=== PATIENT | male | born 1950 | race Two or more races ===

== ENCOUNTER → 2016-08-24 | Outpatient (CLI) | payer OTHER ==
[~2016-08-24] VITALS: Ht 170.2 cm; Wt 104.8 kg
[~2016-08-24] MED LIST: AMMO225L14 TP; AMOX1TAB15 PO; FURO40 PO; INSLAN SQ; METO100XL PO; NORT25 PO
[2016-08-24 08:37] VITALS: BP 195/95
== END | disposition home or self-care (01) ==
LOC: EDBD → HBOWC 07:49
PROVIDERS: ATTEND Emergency Medicine
DX: T86.828 Other complications of skin graft (allograft) (autograft) (principal); E11.622 Type 2 diabetes mellitus with other skin ulcer; L97.322 Non-pressure chronic ulcer of left ankle with fat layer exposed; I87.8 Other specified disorders of veins; L84 Corns and callosities; B35.1 Tinea unguium; E11.65 Type 2 diabetes mellitus with hyperglycemia; E11.22 Type 2 diabetes mellitus with diabetic chronic kidney disease; I12.9 Hypertensive chronic kidney disease with stage 1 through stage 4 chronic kidney disease, or unspecified chronic kidney disease; N18.9 Chronic kidney disease, unspecified; K70.30 Alcoholic cirrhosis of liver without ascites; E66.9 Obesity, unspecified; E11.51 Type 2 diabetes mellitus with diabetic peripheral angiopathy without gangrene; E11.42 Type 2 diabetes mellitus with diabetic polyneuropathy; E11.319 Type 2 diabetes mellitus with unspecified diabetic retinopathy without macular edema; E11.36 Type 2 diabetes mellitus with diabetic cataract; Y83.2 Surgical operation with anastomosis, bypass or graft as the cause of abnormal reaction of the patient, or of later complication, without mention of misadventure at the time of the procedure
CPT/HCPCS: 11055; 11721; 97597; G0463

== ENCOUNTER → 2016-08-31 | Outpatient (CLI) | payer OTHER ==
[~2016-08-31] MED LIST changes: +ATOR20TA86 PO; +METF500T4 PO; +TAMS0.4C32 PO
[2016-08-31 15:07] VITALS: BP 196/76
[2016-08-31 15:08] VITALS: BP 179/83
== END | disposition home or self-care (01) ==
LOC: EDBD → HBOWC 12:44
PROVIDERS: ATTEND Emergency Medicine
DX: E11.622 Type 2 diabetes mellitus with other skin ulcer (principal); L97.322 Non-pressure chronic ulcer of left ankle with fat layer exposed; E11.621 Type 2 diabetes mellitus with foot ulcer; L97.521 Non-pressure chronic ulcer of other part of left foot limited to breakdown of skin; E11.22 Type 2 diabetes mellitus with diabetic chronic kidney disease; I12.9 Hypertensive chronic kidney disease with stage 1 through stage 4 chronic kidney disease, or unspecified chronic kidney disease; N18.9 Chronic kidney disease, unspecified; L84 Corns and callosities; E66.9 Obesity, unspecified; B35.1 Tinea unguium; E11.65 Type 2 diabetes mellitus with hyperglycemia; E11.42 Type 2 diabetes mellitus with diabetic polyneuropathy; E11.51 Type 2 diabetes mellitus with diabetic peripheral angiopathy without gangrene
CPT/HCPCS: 97597; 97598

== ENCOUNTER → 2016-09-01 | Outpatient (CLI) | payer OTHER | END | disposition home or self-care (01) | LOC: EDBD → RADPV 13:03 | PROVIDERS: ATTEND Emergency Medicine | DX: E11.622 Type 2 diabetes mellitus with other skin ulcer (principal); L97.919 Non-pressure chronic ulcer of unspecified part of right lower leg with unspecified severity | CPT/HCPCS: 93880; 93925 ==

== ENCOUNTER → 2016-09-23 | Outpatient (CLI) | payer OTHER ==
[2016-09-23 14:26] VITALS: BP 199/94
== END | disposition home or self-care (01) ==
LOC: EDBD → HBOWC 11:48 → EDBD 11:48
PROVIDERS: ATTEND Emergency Medicine
DX: T86.828 Other complications of skin graft (allograft) (autograft) (principal); E11.621 Type 2 diabetes mellitus with foot ulcer; L97.521 Non-pressure chronic ulcer of other part of left foot limited to breakdown of skin; L97.321 Non-pressure chronic ulcer of left ankle limited to breakdown of skin; I87.2 Venous insufficiency (chronic) (peripheral); M86.8X6 Other osteomyelitis, lower leg; L97.821 Non-pressure chronic ulcer of other part of left lower leg limited to breakdown of skin; E11.22 Type 2 diabetes mellitus with diabetic chronic kidney disease; I12.9 Hypertensive chronic kidney disease with stage 1 through stage 4 chronic kidney disease, or unspecified chronic kidney disease; N18.9 Chronic kidney disease, unspecified; L84 Corns and callosities; E66.9 Obesity, unspecified; B35.1 Tinea unguium; E11.42 Type 2 diabetes mellitus with diabetic polyneuropathy; E11.65 Type 2 diabetes mellitus with hyperglycemia; E11.51 Type 2 diabetes mellitus with diabetic peripheral angiopathy without gangrene; K70.30 Alcoholic cirrhosis of liver without ascites; E11.36 Type 2 diabetes mellitus with diabetic cataract; E11.319 Type 2 diabetes mellitus with unspecified diabetic retinopathy without macular edema; Y83.5 Amputation of limb(s) as the cause of abnormal reaction of the patient, or of later complication, without mention of misadventure at the time of the procedure
CPT/HCPCS: 97597

== ENCOUNTER → 2016-09-30 | Outpatient (CLI) | payer OTHER ==
[~2016-09-30] MED LIST changes: -AMOX1TAB15 PO; +LIDOCAINE HCL 2% 5 ML JELLY TP ONE
[2016-09-30 14:00] VITALS: BP 164/95
== END | disposition home or self-care (01) ==
LOC: EDBD → RADMN 10:12
PROVIDERS: ATTEND Emergency Medicine Undersea and Hyperbaric Medicine
DX: E11.621 Type 2 diabetes mellitus with foot ulcer (principal); L97.529 Non-pressure chronic ulcer of other part of left foot with unspecified severity; E11.65 Type 2 diabetes mellitus with hyperglycemia; E11.22 Type 2 diabetes mellitus with diabetic chronic kidney disease; N18.9 Chronic kidney disease, unspecified; K74.60 Unspecified cirrhosis of liver
CPT/HCPCS: 73721

== ENCOUNTER 2016-10-06 07:23 | Day surgery (SDC) | payer OTHER ==
[~2016-10-06] VITALS: Ht 167.6 cm; Wt 107.3 kg
[~2016-10-06 07:23] MED LIST changes: -ATOR20TA86 PO; +ESMOLOL HCL 10 MG/ML 10 ML VIAL IVP ONE; +FentaNYL CITRATE-PF 100 MCG/2 ML VIAL IVP ONE; -LIDOCAINE HCL 2% 5 ML JELLY TP ONE; -METF500T4 PO; +METOPROLOL TARTRATE 5 MG/5 ML VIAL IVP ONE; +MIDAZOLAM HCL 2 MG/2 ML VIAL IVP ONE; -TAMS0.4C32 PO
[2016-10-06] MEDS ORDERED: PHENYLEPHRINE HCL 2.5% 2 ML OPHTHALMIC SOLUTION ONE (07:39)
[2016-10-06] MEDS ORDERED: DICLOFENAC SODIUM 0.1% 2.5 ML OPHTHALMIC SOLUTION ONE (07:39)
[2016-10-06] MEDS ORDERED: GATIFLOXACIN 0.5% 2.5 ML OPHTHALMIC SOLUTION ONE (07:39)
[2016-10-06] MEDS ORDERED: CYCLOPENTOLATE HCL 2% 2 ML OPHTHALMIC SOLUTION ONE (07:39)
[2016-10-06] MEDS ORDERED: TETRACAINE HCL 0.5% 2 ML OPHTHALMIC SOLUTION ONE (07:39)
[2016-10-06] MEDS ORDERED: RINGERS SOLUTION,LACTATED 500 ML IV ONE ×2 (07:40→08:00)
[2016-10-06] MEDS ORDERED: ACETAMINOPHEN 325 MG TABLET PO PRN (07:45)
[2016-10-06] MEDS ORDERED: TETRACAINE HCL 0.5% 2 ML OPHTHALMIC SOLUTION OS ONE ×2 (07:45→18:10)
[2016-10-06 08:22] LABS: GLUCOSE COMMENT 1 Doctor Notified; GLUCOSE,POINT OF CARE 106 MG/DL (70-110)
[2016-10-06] MEDS ORDERED: LABETALOL HCL 5 MG/ML 20 ML VIAL IVP ONE (08:30)
[2016-10-06] MEDS: DICLOFENAC SODIUM 0.1% 2.5 ML OPHTHALMIC SOLUTION OS SCH ×3 (08:42→09:08)
[2016-10-06] MEDS: PHENYLEPHRINE HCL 2.5% 2 ML OPHTHALMIC SOLUTION OS SCH ×3 (08:42→08:59)
[2016-10-06] MEDS: GATIFLOXACIN 0.5% 2.5 ML OPHTHALMIC SOLUTION OS SCH ×3 (08:42→09:08)
[2016-10-06] MEDS: CYCLOPENTOLATE HCL 2% 2 ML OPHTHALMIC SOLUTION OS SCH ×3 (08:42→08:59)
[2016-10-06 08:46] VITALS: BP 210/104
[2016-10-06] MEDS ORDERED: AcetaZOLAMIDE 250 MG TABLET PO ONE (09:45)
[2016-10-06] MEDS ORDERED: AcetaZOLAMIDE 250 MG TABLET ONE (10:13)
[2016-10-06] MEDS ORDERED: MOXIFLOXACIN HCL 0.5% 3 ML OPHTHALMIC SOLUTION OS ONE (18:10)
[2016-10-06] MEDS ORDERED: TETRACAINE HCL VISCOUS 0.5% 0.6 ML OPHTHALMIC SOLUTION OS ONE (18:10)
[2016-10-06] MEDS ORDERED: EPINEPHrine 1:1,000 [1 MG/ML] AMP IM ONE (18:10)
[2016-10-06] MEDS ORDERED: POVIDONE-IODINE 10% 15 ML SOLUTION UD TP ONE (18:10)
[2016-10-06] MEDS ORDERED: HYALURONATE SODIUM 12 MG/ML 0.8 ML SYRINGE IO ONE (18:10)
[2016-10-06] MEDS ORDERED: HYALURONATE SOD/CHONDROITIN SOD 0.5 ML VIAL IO ONE (18:10)
[2016-10-06] MEDS ORDERED: BRIMONIDINE TARTRATE 0.15% 5 ML OPHTHALMIC SOLUTION OS ONE (18:10)
[2016-10-06] MEDS ORDERED: LIDOCAINE HCL/PF 1% 2 ML VIAL IM ONE (18:10)
[2016-10-14] MEDS ORDERED: METF500T4 PO (11:30)
[2016-12-03] MEDS ORDERED: TAMS0.4C32 PO (14:07)
[2016-12-03] MEDS ORDERED: ATOR20TA86 PO (14:07)
== END 2016-10-06 11:20 | disposition home or self-care (01) ==
LOC: EDBD → SURGERY 07:23
PROVIDERS: ATTEND Ophthalmology
DX: E11.36 Type 2 diabetes mellitus with diabetic cataract (principal); E11.40 Type 2 diabetes mellitus with diabetic neuropathy, unspecified; K74.60 Unspecified cirrhosis of liver; I10 Essential (primary) hypertension; D64.9 Anemia, unspecified; E66.9 Obesity, unspecified; Z98.890 Other specified postprocedural states
CPT/HCPCS: 66984; 82962; 93005; C1780; J0171; J2250; J3010; J3490 ×5; J7120

== ENCOUNTER → 2016-10-14 | Outpatient (CLI) | payer OTHER ==
[~2016-10-14] MED LIST changes: +ATOR20TA86 PO; -ESMOLOL HCL 10 MG/ML 10 ML VIAL IVP ONE; -FentaNYL CITRATE-PF 100 MCG/2 ML VIAL IVP ONE; +METF500T4 PO; -METOPROLOL TARTRATE 5 MG/5 ML VIAL IVP ONE; -MIDAZOLAM HCL 2 MG/2 ML VIAL IVP ONE; +TAMS0.4C32 PO
[2016-10-14 10:50] VITALS: BP 188/90
[2016-10-14 11:12] LABS: GLUCOSE,POINT OF CARE 121 MG/DL (70-110)
== END | disposition home or self-care (01) ==
LOC: HBOWC 09:41
PROVIDERS: ATTEND Emergency Medicine
DX: T86.828 Other complications of skin graft (allograft) (autograft) (principal); E11.621 Type 2 diabetes mellitus with foot ulcer; L97.521 Non-pressure chronic ulcer of other part of left foot limited to breakdown of skin; E11.622 Type 2 diabetes mellitus with other skin ulcer; L97.321 Non-pressure chronic ulcer of left ankle limited to breakdown of skin; E66.9 Obesity, unspecified; E11.22 Type 2 diabetes mellitus with diabetic chronic kidney disease; I12.9 Hypertensive chronic kidney disease with stage 1 through stage 4 chronic kidney disease, or unspecified chronic kidney disease; N18.9 Chronic kidney disease, unspecified; E11.40 Type 2 diabetes mellitus with diabetic neuropathy, unspecified; L84 Corns and callosities; E11.69 Type 2 diabetes mellitus with other specified complication; M86.8X6 Other osteomyelitis, lower leg; E11.42 Type 2 diabetes mellitus with diabetic polyneuropathy; E11.51 Type 2 diabetes mellitus with diabetic peripheral angiopathy without gangrene; E11.319 Type 2 diabetes mellitus with unspecified diabetic retinopathy without macular edema; E11.36 Type 2 diabetes mellitus with diabetic cataract; Y83.2 Surgical operation with anastomosis, bypass or graft as the cause of abnormal reaction of the patient, or of later complication, without mention of misadventure at the time of the procedure
CPT/HCPCS: 82962; 97597

== ENCOUNTER → 2016-11-05 | Outpatient (CLI) | payer OTHER ==
[~2016-11-05] MED LIST changes: -ATOR20TA86 PO; +LIDOCAINE HCL 2% 5 ML JELLY TP ONE; -TAMS0.4C32 PO
[2016-11-05 14:19] VITALS: BP 187/72
[2016-11-05 15:03] VITALS: BP 161/78
== END | disposition home or self-care (01) ==
LOC: HBOWC 11:47
PROVIDERS: ATTEND Emergency Medicine
DX: T86.828 Other complications of skin graft (allograft) (autograft) (principal); E11.622 Type 2 diabetes mellitus with other skin ulcer; L97.322 Non-pressure chronic ulcer of left ankle with fat layer exposed; E11.621 Type 2 diabetes mellitus with foot ulcer; L97.521 Non-pressure chronic ulcer of other part of left foot limited to breakdown of skin; I87.2 Venous insufficiency (chronic) (peripheral); E11.22 Type 2 diabetes mellitus with diabetic chronic kidney disease; I12.9 Hypertensive chronic kidney disease with stage 1 through stage 4 chronic kidney disease, or unspecified chronic kidney disease; N18.4 Chronic kidney disease, stage 4 (severe); L84 Corns and callosities; E66.9 Obesity, unspecified; E11.69 Type 2 diabetes mellitus with other specified complication; M86.8X6 Other osteomyelitis, lower leg; E11.36 Type 2 diabetes mellitus with diabetic cataract; E11.40 Type 2 diabetes mellitus with diabetic neuropathy, unspecified; E11.51 Type 2 diabetes mellitus with diabetic peripheral angiopathy without gangrene; E11.42 Type 2 diabetes mellitus with diabetic polyneuropathy; K74.60 Unspecified cirrhosis of liver; E11.65 Type 2 diabetes mellitus with hyperglycemia; B35.1 Tinea unguium; Y83.2 Surgical operation with anastomosis, bypass or graft as the cause of abnormal reaction of the patient, or of later complication, without mention of misadventure at the time of the procedure
CPT/HCPCS: 11720; 97597; 97598

== ENCOUNTER 2016-11-19 21:08 | Emergency (ER) | payer OTHER ==
[~2016-11-19] VITALS: Ht 172.7 cm; Wt 90.9 kg
[~2016-11-19 21:08] MED LIST changes: -ATOR20TA86 PO; -LIDOCAINE HCL 2% 5 ML JELLY TP ONE; -TAMS0.4C32 PO
[2016-11-19 21:36] LABS: GLUCOSE,POINT OF CARE 139 MG/DL (70-110)
[2016-11-19 21:49] LABS: BASOPHILS % (AUTO) 0.4 % (0.0-2.0); EOSINOPHILS % (AUTO) 1.8 % (1.0-6.0); HEMATOCRIT 44.2 % (41-53); HEMOGLOBIN 14.1 g/dL (13.5-17.5); LYMPHOCYTES # (AUTO) 2.7 K/uL (1.0-4.8); LYMPHOCYTES % (AUTO) 26.1 % (22.0-44.0); MEAN CORPUSCULAR HEMOGLOBIN 26.9 pg (26.0-34.0); MEAN CORPUSCULAR VOLUME 84 fL (80-100); MONOCYTES % (AUTO) 9.5 % (2.0-9.0); NEUTROPHILS # (AUTO) 6.5 K/uL (1.8-7.7); NEUTROPHILS % (AUTO) 62.2 % (40.0-70.0); PLATELET COUNT (AUTO) 240 K/uL (150-450); RED BLOOD CELL COUNT(AUTO) 5.25 MIL/uL (4.50-5.90); RED CELL DISTRIBUTION WIDTH 14.9 % (11.5-14.5); WHITE BLOOD COUNT (AUTO) 10.4 K/uL (4.5-11.0)
[2016-11-19 22:01] LABS: ANION GAP 7 mmol/L (8-16); CALCIUM, TOTAL 8.2 mg/dL (8.8-10.5); CARBON DIOXIDE 26 mmol/L (22-29); CHLORIDE 107 mmol/L (98-107); CREATININE 2.68 mg/dL (0.60-1.30); GLOMERULAR FILTR. RATE CALC 24 mL/min (>60); POTASSIUM 4.9 mmol/L (3.5-5.1); SODIUM SERUM 140 mmol/L (136-145); UREA NITROGEN, BLOOD 22 mg/dL (7-18)
[2016-11-19 22:02] LABS: INR 0.9 (0.9-1.1); PROTHROMBIN TIME 9.7 SEC (9.4-11.6)
[2016-11-19 22:26] LABS: ALANINE AMINOTRANSFERASE 18 U/L (12-78); ALBUMIN 2.1 g/dL (3.4-5.0); ASPARTATE AMINOTRANSFERASE 19 U/L (15-37); BILIRUBIN,TOTAL 0.3 mg/dL (0.1-1.0); CREATINE KINASE MB 1.7 ng/mL (0-5); CREATINE KINASE, TOTAL 146 U/L (39-308); TOTAL PROTEIN, SERUM 6.2 g/dL (6.4-8.2)
[2016-11-19] MEDS ORDERED: HydrALAZINE HCL 20 MG/ML VIAL IVP ONE (23:15)
[2016-11-19 23:22] LABS: APPEARANCE,URINE CLEAR (CLEAR); GLUCOSE, URINE (UA) 250 mg/dL (NEGATIVE); KETONES,URINE NEGATIVE (NEGATIVE); LEUKOCYTE ESTERASE ,URINE NEGATIVE (NEGATIVE); OCCULT BLOOD,URINE SMALL (NEGATIVE); PROTEIN,URINE SEE CONFIRM (NEGATIVE)
[2016-11-19 23:25] LABS: ADD UA MICROSCOPIC YES
[2016-11-19 23:44] LABS: SULFOSALICYLIC ACID,URINE 3+ (Negative)
[2016-11-19 23:45] LABS: SQUAMOUS EPITHELIAL CELL,UR Rare /LPF (None Seen); WBC,URINE 0-2 /HPF (0-5)
[2016-11-20] MEDS ORDERED: HydrALAZINE HCL 20 MG/ML VIAL IVP ONE (00:30)
[2016-11-20 01:35] VITALS: BP 129/77
[2016-12-03] MEDS ORDERED: ATOR20TA86 PO (14:07)
[2016-12-03] MEDS ORDERED: TAMS0.4C32 PO (14:07)
== END 2016-11-20 01:38 | disposition home or self-care (01) ==
LOC: EMS 21:09
DX: I10 Essential (primary) hypertension (principal); E11.9 Type 2 diabetes mellitus without complications
CPT/HCPCS: 36415; 71010; 80053; 81001; 81002; 82550; 82553; 82962; 84484; 85025; 85610; 85730; 93005; 96374; 96376; 99285; J0360 ×2

== ENCOUNTER → 2016-11-19 | Outpatient (CLI) | payer OTHER ==
[~2016-11-19] MED LIST changes: +ATOR20TA86 PO; +TAMS0.4C32 PO
[2016-11-19 14:26] VITALS: BP_SYST 188; BP_SYST 194; BP_DIAS 102; BP_DIAS 105
== END | disposition home or self-care (01) ==
LOC: HBOWC 12:06
PROVIDERS: ATTEND Emergency Medicine
DX: T86.828 Other complications of skin graft (allograft) (autograft) (principal); E11.622 Type 2 diabetes mellitus with other skin ulcer; L84 Corns and callosities; L97.322 Non-pressure chronic ulcer of left ankle with fat layer exposed; K74.60 Unspecified cirrhosis of liver; M20.42 Other hammer toe(s) (acquired), left foot; R60.0 Localized edema; B36.9 Superficial mycosis, unspecified; M72.6 Necrotizing fasciitis; E11.69 Type 2 diabetes mellitus with other specified complication; M86.8X8 Other osteomyelitis, other site; E11.42 Type 2 diabetes mellitus with diabetic polyneuropathy; E11.65 Type 2 diabetes mellitus with hyperglycemia; E11.22 Type 2 diabetes mellitus with diabetic chronic kidney disease; I12.9 Hypertensive chronic kidney disease with stage 1 through stage 4 chronic kidney disease, or unspecified chronic kidney disease; E66.9 Obesity, unspecified; N18.4 Chronic kidney disease, stage 4 (severe); I87.2 Venous insufficiency (chronic) (peripheral); E11.36 Type 2 diabetes mellitus with diabetic cataract; E11.319 Type 2 diabetes mellitus with unspecified diabetic retinopathy without macular edema; Z79.4 Long term (current) use of insulin; Y83.2 Surgical operation with anastomosis, bypass or graft as the cause of abnormal reaction of the patient, or of later complication, without mention of misadventure at the time of the procedure
CPT/HCPCS: 97597

== ENCOUNTER → 2016-12-03 | Outpatient (CLI) | payer OTHER ==
[~2016-12-03] MED LIST changes: +ATOR20TA86 PO; +TAMS0.4C32 PO
[2016-12-03 14:09] VITALS: BP 178/78
== END | disposition home or self-care (01) ==
LOC: HBOWC 13:09
PROVIDERS: ATTEND Emergency Medicine
DX: E11.621 Type 2 diabetes mellitus with foot ulcer (principal); L97.521 Non-pressure chronic ulcer of other part of left foot limited to breakdown of skin; E11.622 Type 2 diabetes mellitus with other skin ulcer; L97.322 Non-pressure chronic ulcer of left ankle with fat layer exposed; E11.22 Type 2 diabetes mellitus with diabetic chronic kidney disease; I12.9 Hypertensive chronic kidney disease with stage 1 through stage 4 chronic kidney disease, or unspecified chronic kidney disease; N18.4 Chronic kidney disease, stage 4 (severe); E11.42 Type 2 diabetes mellitus with diabetic polyneuropathy; E11.36 Type 2 diabetes mellitus with diabetic cataract; E66.9 Obesity, unspecified; E11.319 Type 2 diabetes mellitus with unspecified diabetic retinopathy without macular edema; E11.51 Type 2 diabetes mellitus with diabetic peripheral angiopathy without gangrene; E11.69 Type 2 diabetes mellitus with other specified complication; M86.8X8 Other osteomyelitis, other site; M86.8X6 Other osteomyelitis, lower leg; E11.649 Type 2 diabetes mellitus with hypoglycemia without coma; K74.60 Unspecified cirrhosis of liver; Z79.4 Long term (current) use of insulin
CPT/HCPCS: 97597

== ENCOUNTER → 2016-12-17 | Outpatient (CLI) | payer OTHER ==
[2016-12-17 09:45] VITALS: BP 153/78
== END | disposition home or self-care (01) ==
LOC: HBOWC 09:32
PROVIDERS: ATTEND Emergency Medicine Undersea and Hyperbaric Medicine
DX: E11.622 Type 2 diabetes mellitus with other skin ulcer (principal); L97.322 Non-pressure chronic ulcer of left ankle with fat layer exposed; E11.621 Type 2 diabetes mellitus with foot ulcer; L97.521 Non-pressure chronic ulcer of other part of left foot limited to breakdown of skin; I87.2 Venous insufficiency (chronic) (peripheral); E11.22 Type 2 diabetes mellitus with diabetic chronic kidney disease; I12.9 Hypertensive chronic kidney disease with stage 1 through stage 4 chronic kidney disease, or unspecified chronic kidney disease; N18.4 Chronic kidney disease, stage 4 (severe); E66.9 Obesity, unspecified; E11.69 Type 2 diabetes mellitus with other specified complication; M86.8X8 Other osteomyelitis, other site; E11.36 Type 2 diabetes mellitus with diabetic cataract; E11.42 Type 2 diabetes mellitus with diabetic polyneuropathy; E11.649 Type 2 diabetes mellitus with hypoglycemia without coma; E11.51 Type 2 diabetes mellitus with diabetic peripheral angiopathy without gangrene; L84 Corns and callosities; M72.6 Necrotizing fasciitis; B35.1 Tinea unguium; Z79.4 Long term (current) use of insulin
CPT/HCPCS: 97597

== ENCOUNTER → 2017-01-11 | Outpatient (CLI) | payer OTHER ==
[~2017-01-11] MED LIST changes: +LIDOCAINE HCL 2% 5 ML JELLY TP ONE
[2017-01-11 13:58] VITALS: BP 165/85
== END | disposition home or self-care (01) ==
LOC: HBOWC 12:55
PROVIDERS: ATTEND Emergency Medicine Undersea and Hyperbaric Medicine
DX: T86.828 Other complications of skin graft (allograft) (autograft) (principal); E11.622 Type 2 diabetes mellitus with other skin ulcer; L97.321 Non-pressure chronic ulcer of left ankle limited to breakdown of skin; E11.621 Type 2 diabetes mellitus with foot ulcer; L97.521 Non-pressure chronic ulcer of other part of left foot limited to breakdown of skin; E11.22 Type 2 diabetes mellitus with diabetic chronic kidney disease; E11.42 Type 2 diabetes mellitus with diabetic polyneuropathy; E11.36 Type 2 diabetes mellitus with diabetic cataract; E11.51 Type 2 diabetes mellitus with diabetic peripheral angiopathy without gangrene; E11.65 Type 2 diabetes mellitus with hyperglycemia; I12.9 Hypertensive chronic kidney disease with stage 1 through stage 4 chronic kidney disease, or unspecified chronic kidney disease; N18.4 Chronic kidney disease, stage 4 (severe); L84 Corns and callosities; M72.6 Necrotizing fasciitis; I87.2 Venous insufficiency (chronic) (peripheral); E66.9 Obesity, unspecified; E11.69 Type 2 diabetes mellitus with other specified complication; M86.8X8 Other osteomyelitis, other site; B35.1 Tinea unguium; I10 Essential (primary) hypertension; Z79.4 Long term (current) use of insulin; Y83.2 Surgical operation with anastomosis, bypass or graft as the cause of abnormal reaction of the patient, or of later complication, without mention of misadventure at the time of the procedure
CPT/HCPCS: 97597; 97598

== ENCOUNTER → 2017-01-25 | Outpatient (CLI) | payer OTHER ==
[2017-01-25 13:55] VITALS: BP 181/78
== END | disposition home or self-care (01) ==
LOC: HBOWC 13:37
PROVIDERS: ATTEND Emergency Medicine
DX: T86.828 Other complications of skin graft (allograft) (autograft) (principal); E11.622 Type 2 diabetes mellitus with other skin ulcer; L97.322 Non-pressure chronic ulcer of left ankle with fat layer exposed; L97.821 Non-pressure chronic ulcer of other part of left lower leg limited to breakdown of skin; I87.2 Venous insufficiency (chronic) (peripheral); E11.22 Type 2 diabetes mellitus with diabetic chronic kidney disease; I12.9 Hypertensive chronic kidney disease with stage 1 through stage 4 chronic kidney disease, or unspecified chronic kidney disease; N18.4 Chronic kidney disease, stage 4 (severe); E66.9 Obesity, unspecified; E11.69 Type 2 diabetes mellitus with other specified complication; M86.8X8 Other osteomyelitis, other site; M86.8X6 Other osteomyelitis, lower leg; E11.36 Type 2 diabetes mellitus with diabetic cataract; E11.42 Type 2 diabetes mellitus with diabetic polyneuropathy; E11.51 Type 2 diabetes mellitus with diabetic peripheral angiopathy without gangrene; E11.319 Type 2 diabetes mellitus with unspecified diabetic retinopathy without macular edema; M72.6 Necrotizing fasciitis; B35.1 Tinea unguium; M79.672 Pain in left foot; Z79.4 Long term (current) use of insulin; L84 Corns and callosities; Y83.2 Surgical operation with anastomosis, bypass or graft as the cause of abnormal reaction of the patient, or of later complication, without mention of misadventure at the time of the procedure
CPT/HCPCS: 11055; 97597

== ENCOUNTER → 2017-02-08 | Outpatient (CLI) | payer OTHER ==
[~2017-02-08] MED LIST changes: -LIDOCAINE HCL 2% 5 ML JELLY TP ONE
[2017-02-08 14:03] VITALS: BP 150/73
== END | disposition home or self-care (01) ==
LOC: HBOWC 13:40
PROVIDERS: ATTEND Emergency Medicine Undersea and Hyperbaric Medicine
DX: T86.828 Other complications of skin graft (allograft) (autograft) (principal); E11.622 Type 2 diabetes mellitus with other skin ulcer; L97.322 Non-pressure chronic ulcer of left ankle with fat layer exposed; E11.22 Type 2 diabetes mellitus with diabetic chronic kidney disease; I12.9 Hypertensive chronic kidney disease with stage 1 through stage 4 chronic kidney disease, or unspecified chronic kidney disease; N18.4 Chronic kidney disease, stage 4 (severe); Z79.4 Long term (current) use of insulin; M72.6 Necrotizing fasciitis; E66.9 Obesity, unspecified; E11.69 Type 2 diabetes mellitus with other specified complication; M86.8X8 Other osteomyelitis, other site; B35.1 Tinea unguium; E11.36 Type 2 diabetes mellitus with diabetic cataract; E11.319 Type 2 diabetes mellitus with unspecified diabetic retinopathy without macular edema; I87.2 Venous insufficiency (chronic) (peripheral); Y83.2 Surgical operation with anastomosis, bypass or graft as the cause of abnormal reaction of the patient, or of later complication, without mention of misadventure at the time of the procedure
CPT/HCPCS: 97597

== ENCOUNTER → 2017-02-22 | Outpatient (CLI) | payer OTHER ==
[2017-02-22 13:54] VITALS: BP 165/91
== END | disposition home or self-care (01) ==
LOC: HBOWC 13:06
PROVIDERS: ATTEND Emergency Medicine
DX: T86.828 Other complications of skin graft (allograft) (autograft) (principal); E11.622 Type 2 diabetes mellitus with other skin ulcer; L97.321 Non-pressure chronic ulcer of left ankle limited to breakdown of skin; E11.22 Type 2 diabetes mellitus with diabetic chronic kidney disease; I12.9 Hypertensive chronic kidney disease with stage 1 through stage 4 chronic kidney disease, or unspecified chronic kidney disease; N18.4 Chronic kidney disease, stage 4 (severe); Z79.4 Long term (current) use of insulin; E66.9 Obesity, unspecified; E11.69 Type 2 diabetes mellitus with other specified complication; M86.8X8 Other osteomyelitis, other site; B35.1 Tinea unguium; E11.36 Type 2 diabetes mellitus with diabetic cataract; E11.319 Type 2 diabetes mellitus with unspecified diabetic retinopathy without macular edema; I87.2 Venous insufficiency (chronic) (peripheral); L84 Corns and callosities; E11.42 Type 2 diabetes mellitus with diabetic polyneuropathy; E11.51 Type 2 diabetes mellitus with diabetic peripheral angiopathy without gangrene; Y83.2 Surgical operation with anastomosis, bypass or graft as the cause of abnormal reaction of the patient, or of later complication, without mention of misadventure at the time of the procedure
CPT/HCPCS: 11720; 97597

== ENCOUNTER → 2017-03-16 | Outpatient (CLI) | payer MEDICARE, OTHER ==
[~2017-03-16] MED LIST changes: +LIDOCAINE HCL 2% 5 ML JELLY TP ONE
[2017-03-16 10:51] VITALS: BP 163/81
== END | disposition home or self-care (01) ==
LOC: HBOWC 10:10
PROVIDERS: ATTEND Emergency Medicine
DX: T86.821 Skin graft (allograft) (autograft) failure (principal); E11.622 Type 2 diabetes mellitus with other skin ulcer; L97.321 Non-pressure chronic ulcer of left ankle limited to breakdown of skin; E11.42 Type 2 diabetes mellitus with diabetic polyneuropathy; E11.65 Type 2 diabetes mellitus with hyperglycemia; E66.9 Obesity, unspecified; E11.22 Type 2 diabetes mellitus with diabetic chronic kidney disease; I12.9 Hypertensive chronic kidney disease with stage 1 through stage 4 chronic kidney disease, or unspecified chronic kidney disease; N18.4 Chronic kidney disease, stage 4 (severe); L84 Corns and callosities; E11.69 Type 2 diabetes mellitus with other specified complication; M86.68 Other chronic osteomyelitis, other site; B35.1 Tinea unguium; I87.2 Venous insufficiency (chronic) (peripheral); Z68.1 Body mass index [BMI] 19.9 or less, adult; Y83.2 Surgical operation with anastomosis, bypass or graft as the cause of abnormal reaction of the patient, or of later complication, without mention of misadventure at the time of the procedure
CPT/HCPCS: 11042

== ENCOUNTER → 2017-03-22 | Outpatient (CLI) | payer MEDICARE, OTHER ==
[~2017-03-22] MED LIST changes: -LIDOCAINE HCL 2% 5 ML JELLY TP ONE
[2017-03-22 14:05] VITALS: BP 126/78
== END | disposition home or self-care (01) ==
LOC: HBOWC 13:41
PROVIDERS: ATTEND Surgery Plastic and Reconstructive Surgery
DX: T86.821 Skin graft (allograft) (autograft) failure (principal); E11.622 Type 2 diabetes mellitus with other skin ulcer; L97.321 Non-pressure chronic ulcer of left ankle limited to breakdown of skin; E66.9 Obesity, unspecified; E11.22 Type 2 diabetes mellitus with diabetic chronic kidney disease; I12.9 Hypertensive chronic kidney disease with stage 1 through stage 4 chronic kidney disease, or unspecified chronic kidney disease; N18.4 Chronic kidney disease, stage 4 (severe); E11.69 Type 2 diabetes mellitus with other specified complication; M86.68 Other chronic osteomyelitis, other site; E11.42 Type 2 diabetes mellitus with diabetic polyneuropathy; E11.36 Type 2 diabetes mellitus with diabetic cataract; E11.51 Type 2 diabetes mellitus with diabetic peripheral angiopathy without gangrene; E11.319 Type 2 diabetes mellitus with unspecified diabetic retinopathy without macular edema; Z68.1 Body mass index [BMI] 19.9 or less, adult; Z79.4 Long term (current) use of insulin; Y83.2 Surgical operation with anastomosis, bypass or graft as the cause of abnormal reaction of the patient, or of later complication, without mention of misadventure at the time of the procedure
CPT/HCPCS: 11042

== ENCOUNTER → 2017-03-29 | Outpatient (CLI) | payer MEDICARE, OTHER ==
[~2017-03-29] MED LIST changes: +ATOR40TA28 PO; +CALC25 PO; +CARV6 PO; +CHL25 PO; +FINA5TAB41 PO; +FURO80 PO; +LIDOCAINE HCL 2% 5 ML JELLY TP ONE; +SACU1TAB7 PO; +ZARO5 PO
[2017-03-29 11:35] VITALS: BP 149/83
== END | disposition home or self-care (01) ==
LOC: HBOWC 10:26
PROVIDERS: ATTEND Surgery Plastic and Reconstructive Surgery
DX: T86.821 Skin graft (allograft) (autograft) failure (principal); E11.622 Type 2 diabetes mellitus with other skin ulcer; L97.321 Non-pressure chronic ulcer of left ankle limited to breakdown of skin; E11.22 Type 2 diabetes mellitus with diabetic chronic kidney disease; I12.9 Hypertensive chronic kidney disease with stage 1 through stage 4 chronic kidney disease, or unspecified chronic kidney disease; I87.2 Venous insufficiency (chronic) (peripheral); E11.36 Type 2 diabetes mellitus with diabetic cataract; E11.51 Type 2 diabetes mellitus with diabetic peripheral angiopathy without gangrene; E11.319 Type 2 diabetes mellitus with unspecified diabetic retinopathy without macular edema; E11.65 Type 2 diabetes mellitus with hyperglycemia; E11.69 Type 2 diabetes mellitus with other specified complication; E11.42 Type 2 diabetes mellitus with diabetic polyneuropathy; M86.68 Other chronic osteomyelitis, other site; N18.4 Chronic kidney disease, stage 4 (severe); E66.9 Obesity, unspecified; Z79.4 Long term (current) use of insulin; Z68.1 Body mass index [BMI] 19.9 or less, adult; Y83.2 Surgical operation with anastomosis, bypass or graft as the cause of abnormal reaction of the patient, or of later complication, without mention of misadventure at the time of the procedure
CPT/HCPCS: 11042

== ENCOUNTER → 2017-04-12 | Outpatient (CLI) | payer MEDICARE, OTHER ==
[~2017-04-12] MED LIST changes: -ATOR20TA86 PO; -LIDOCAINE HCL 2% 5 ML JELLY TP ONE
[2017-04-12 11:00] VITALS: BP 138/76
== END | disposition home or self-care (01) ==
LOC: HBOWC 11:01
PROVIDERS: ATTEND Surgery Plastic and Reconstructive Surgery
DX: T86.821 Skin graft (allograft) (autograft) failure (principal); E11.622 Type 2 diabetes mellitus with other skin ulcer; L97.321 Non-pressure chronic ulcer of left ankle limited to breakdown of skin; E11.22 Type 2 diabetes mellitus with diabetic chronic kidney disease; I12.9 Hypertensive chronic kidney disease with stage 1 through stage 4 chronic kidney disease, or unspecified chronic kidney disease; N18.4 Chronic kidney disease, stage 4 (severe); E66.9 Obesity, unspecified; Z68.1 Body mass index [BMI] 19.9 or less, adult; E11.69 Type 2 diabetes mellitus with other specified complication; M86.8X8 Other osteomyelitis, other site; E11.36 Type 2 diabetes mellitus with diabetic cataract; E11.42 Type 2 diabetes mellitus with diabetic polyneuropathy; E11.51 Type 2 diabetes mellitus with diabetic peripheral angiopathy without gangrene; E11.319 Type 2 diabetes mellitus with unspecified diabetic retinopathy without macular edema; B35.1 Tinea unguium; L84 Corns and callosities; M72.6 Necrotizing fasciitis; Y83.2 Surgical operation with anastomosis, bypass or graft as the cause of abnormal reaction of the patient, or of later complication, without mention of misadventure at the time of the procedure
CPT/HCPCS: 11042

== ENCOUNTER → 2017-04-19 | Outpatient (CLI) | payer MEDICARE, OTHER ==
[~2017-04-19] MED LIST changes: +COLLAGENASE 250 UNITS/GM 30 GM OINTMENT TP ONE; +LIDOCAINE HCL 2% 5 ML JELLY TP ONE
[2017-04-19 11:30] VITALS: BP 174/77
== END | disposition home or self-care (01) ==
LOC: HBOWC 11:23
PROVIDERS: ATTEND Surgery Plastic and Reconstructive Surgery
DX: T86.821 Skin graft (allograft) (autograft) failure (principal); E11.622 Type 2 diabetes mellitus with other skin ulcer; L97.321 Non-pressure chronic ulcer of left ankle limited to breakdown of skin; E11.51 Type 2 diabetes mellitus with diabetic peripheral angiopathy without gangrene; E11.69 Type 2 diabetes mellitus with other specified complication; E11.42 Type 2 diabetes mellitus with diabetic polyneuropathy; E11.36 Type 2 diabetes mellitus with diabetic cataract; I87.2 Venous insufficiency (chronic) (peripheral); E66.9 Obesity, unspecified; E11.22 Type 2 diabetes mellitus with diabetic chronic kidney disease; I12.9 Hypertensive chronic kidney disease with stage 1 through stage 4 chronic kidney disease, or unspecified chronic kidney disease; N18.4 Chronic kidney disease, stage 4 (severe); M72.6 Necrotizing fasciitis; B35.1 Tinea unguium; M86.8X8 Other osteomyelitis, other site; Z68.1 Body mass index [BMI] 19.9 or less, adult; Y83.2 Surgical operation with anastomosis, bypass or graft as the cause of abnormal reaction of the patient, or of later complication, without mention of misadventure at the time of the procedure
CPT/HCPCS: 11042; Z7610

== ENCOUNTER → 2017-04-26 | Outpatient (CLI) | payer MEDICARE, OTHER ==
[~2017-04-26] MED LIST changes: -COLLAGENASE 250 UNITS/GM 30 GM OINTMENT TP ONE
[2017-04-26 11:40] VITALS: BP 133/67
== END | disposition home or self-care (01) ==
LOC: HBOWC 10:59
PROVIDERS: ATTEND Surgery Plastic and Reconstructive Surgery
DX: T86.821 Skin graft (allograft) (autograft) failure (principal); E11.622 Type 2 diabetes mellitus with other skin ulcer; L97.321 Non-pressure chronic ulcer of left ankle limited to breakdown of skin; E11.36 Type 2 diabetes mellitus with diabetic cataract; E11.42 Type 2 diabetes mellitus with diabetic polyneuropathy; E11.51 Type 2 diabetes mellitus with diabetic peripheral angiopathy without gangrene; E11.319 Type 2 diabetes mellitus with unspecified diabetic retinopathy without macular edema; E11.65 Type 2 diabetes mellitus with hyperglycemia; E11.69 Type 2 diabetes mellitus with other specified complication; M86.68 Other chronic osteomyelitis, other site; E11.22 Type 2 diabetes mellitus with diabetic chronic kidney disease; I12.9 Hypertensive chronic kidney disease with stage 1 through stage 4 chronic kidney disease, or unspecified chronic kidney disease; N18.4 Chronic kidney disease, stage 4 (severe); E66.9 Obesity, unspecified; I87.2 Venous insufficiency (chronic) (peripheral); L84 Corns and callosities; Z68.1 Body mass index [BMI] 19.9 or less, adult; Z79.4 Long term (current) use of insulin; Y83.2 Surgical operation with anastomosis, bypass or graft as the cause of abnormal reaction of the patient, or of later complication, without mention of misadventure at the time of the procedure
CPT/HCPCS: 11042

== ENCOUNTER → 2017-05-10 | Outpatient (CLI) | payer MEDICARE, OTHER ==
[2017-05-10 08:24] VITALS: BP 144/73
== END | disposition home or self-care (01) ==
LOC: HBOWC 07:09
PROVIDERS: ATTEND Surgery Plastic and Reconstructive Surgery
DX: T86.821 Skin graft (allograft) (autograft) failure (principal); E11.622 Type 2 diabetes mellitus with other skin ulcer; L97.321 Non-pressure chronic ulcer of left ankle limited to breakdown of skin; M72.6 Necrotizing fasciitis; I10 Essential (primary) hypertension; E11.22 Type 2 diabetes mellitus with diabetic chronic kidney disease; I12.9 Hypertensive chronic kidney disease with stage 1 through stage 4 chronic kidney disease, or unspecified chronic kidney disease; N18.4 Chronic kidney disease, stage 4 (severe); L84 Corns and callosities; E11.69 Type 2 diabetes mellitus with other specified complication; M86.68 Other chronic osteomyelitis, other site; E11.36 Type 2 diabetes mellitus with diabetic cataract; E11.42 Type 2 diabetes mellitus with diabetic polyneuropathy; E11.51 Type 2 diabetes mellitus with diabetic peripheral angiopathy without gangrene; E11.319 Type 2 diabetes mellitus with unspecified diabetic retinopathy without macular edema; B35.1 Tinea unguium; Z79.4 Long term (current) use of insulin; Y83.2 Surgical operation with anastomosis, bypass or graft as the cause of abnormal reaction of the patient, or of later complication, without mention of misadventure at the time of the procedure
CPT/HCPCS: 11042

== ENCOUNTER → 2017-05-17 | Outpatient (CLI) | payer MEDICARE, OTHER ==
[2017-05-17 10:42] VITALS: BP 157/89
== END | disposition home or self-care (01) ==
LOC: HBOWC 09:36
PROVIDERS: ATTEND Surgery Plastic and Reconstructive Surgery
DX: T86.821 Skin graft (allograft) (autograft) failure (principal); E11.622 Type 2 diabetes mellitus with other skin ulcer; L97.321 Non-pressure chronic ulcer of left ankle limited to breakdown of skin; I87.2 Venous insufficiency (chronic) (peripheral); E11.22 Type 2 diabetes mellitus with diabetic chronic kidney disease; I12.9 Hypertensive chronic kidney disease with stage 1 through stage 4 chronic kidney disease, or unspecified chronic kidney disease; N18.4 Chronic kidney disease, stage 4 (severe); E11.36 Type 2 diabetes mellitus with diabetic cataract; E11.42 Type 2 diabetes mellitus with diabetic polyneuropathy; E11.51 Type 2 diabetes mellitus with diabetic peripheral angiopathy without gangrene; E11.319 Type 2 diabetes mellitus with unspecified diabetic retinopathy without macular edema; E11.65 Type 2 diabetes mellitus with hyperglycemia; E11.69 Type 2 diabetes mellitus with other specified complication; M86.68 Other chronic osteomyelitis, other site; M72.6 Necrotizing fasciitis; E66.9 Obesity, unspecified; Z68.1 Body mass index [BMI] 19.9 or less, adult; Z79.4 Long term (current) use of insulin; Y83.2 Surgical operation with anastomosis, bypass or graft as the cause of abnormal reaction of the patient, or of later complication, without mention of misadventure at the time of the procedure
CPT/HCPCS: 11042

== ENCOUNTER → 2017-05-24 | Outpatient (CLI) | payer MEDICARE, OTHER ==
[2017-05-24 10:53] VITALS: BP_SYST 150
== END | disposition home or self-care (01) ==
LOC: HBOWC 10:00
PROVIDERS: ATTEND Surgery Plastic and Reconstructive Surgery
DX: T86.821 Skin graft (allograft) (autograft) failure (principal); E11.622 Type 2 diabetes mellitus with other skin ulcer; L97.321 Non-pressure chronic ulcer of left ankle limited to breakdown of skin; E11.22 Type 2 diabetes mellitus with diabetic chronic kidney disease; I12.9 Hypertensive chronic kidney disease with stage 1 through stage 4 chronic kidney disease, or unspecified chronic kidney disease; N18.4 Chronic kidney disease, stage 4 (severe); M72.6 Necrotizing fasciitis; E11.69 Type 2 diabetes mellitus with other specified complication; M86.8X8 Other osteomyelitis, other site; E11.36 Type 2 diabetes mellitus with diabetic cataract; E11.65 Type 2 diabetes mellitus with hyperglycemia; E11.51 Type 2 diabetes mellitus with diabetic peripheral angiopathy without gangrene; L84 Corns and callosities; I87.2 Venous insufficiency (chronic) (peripheral); B35.1 Tinea unguium; Y83.2 Surgical operation with anastomosis, bypass or graft as the cause of abnormal reaction of the patient, or of later complication, without mention of misadventure at the time of the procedure
CPT/HCPCS: 11042

== ENCOUNTER → 2017-05-31 | Outpatient (CLI) | payer MEDICARE, OTHER ==
[2017-05-31 11:11] VITALS: BP 151/73
== END | disposition home or self-care (01) ==
LOC: HBOWC 10:36
PROVIDERS: ATTEND Surgery Plastic and Reconstructive Surgery
DX: T86.821 Skin graft (allograft) (autograft) failure (principal); E11.622 Type 2 diabetes mellitus with other skin ulcer; L97.321 Non-pressure chronic ulcer of left ankle limited to breakdown of skin; E11.22 Type 2 diabetes mellitus with diabetic chronic kidney disease; E11.65 Type 2 diabetes mellitus with hyperglycemia; E11.36 Type 2 diabetes mellitus with diabetic cataract; E11.51 Type 2 diabetes mellitus with diabetic peripheral angiopathy without gangrene; E11.69 Type 2 diabetes mellitus with other specified complication; M86.8X8 Other osteomyelitis, other site; I12.9 Hypertensive chronic kidney disease with stage 1 through stage 4 chronic kidney disease, or unspecified chronic kidney disease; N18.4 Chronic kidney disease, stage 4 (severe); M72.6 Necrotizing fasciitis; L84 Corns and callosities; B35.1 Tinea unguium; E66.9 Obesity, unspecified; Y83.2 Surgical operation with anastomosis, bypass or graft as the cause of abnormal reaction of the patient, or of later complication, without mention of misadventure at the time of the procedure
CPT/HCPCS: 11042

== ENCOUNTER → 2017-06-14 | Outpatient (CLI) | payer MEDICARE, OTHER ==
[~2017-06-14] MED LIST changes: -LIDOCAINE HCL 2% 5 ML JELLY TP ONE
[2017-06-14 11:28] VITALS: BP 152/92
== END | disposition home or self-care (01) ==
LOC: HBOWC 10:58
PROVIDERS: ATTEND Surgery Plastic and Reconstructive Surgery
DX: T86.821 Skin graft (allograft) (autograft) failure (principal); E11.622 Type 2 diabetes mellitus with other skin ulcer; L97.321 Non-pressure chronic ulcer of left ankle limited to breakdown of skin; E66.9 Obesity, unspecified; E11.22 Type 2 diabetes mellitus with diabetic chronic kidney disease; I12.9 Hypertensive chronic kidney disease with stage 1 through stage 4 chronic kidney disease, or unspecified chronic kidney disease; N18.4 Chronic kidney disease, stage 4 (severe); E11.36 Type 2 diabetes mellitus with diabetic cataract; E11.51 Type 2 diabetes mellitus with diabetic peripheral angiopathy without gangrene; I87.2 Venous insufficiency (chronic) (peripheral); E11.69 Type 2 diabetes mellitus with other specified complication; M86.68 Other chronic osteomyelitis, other site; E11.42 Type 2 diabetes mellitus with diabetic polyneuropathy; E11.319 Type 2 diabetes mellitus with unspecified diabetic retinopathy without macular edema; Z79.4 Long term (current) use of insulin; Z68.1 Body mass index [BMI] 19.9 or less, adult; Y83.2 Surgical operation with anastomosis, bypass or graft as the cause of abnormal reaction of the patient, or of later complication, without mention of misadventure at the time of the procedure
CPT/HCPCS: 97597

== ENCOUNTER → 2017-06-24 | Outpatient (CLI) | payer MEDICARE, OTHER ==
[~2017-06-24] MED LIST changes: +LIDOCAINE HCL 2% 5 ML JELLY TP ONE
[2017-06-24 13:42] VITALS: BP 190/90
== END | disposition home or self-care (01) ==
LOC: HBOWC 13:15
PROVIDERS: ATTEND Nurse Practitioner Adult Health
DX: T86.828 Other complications of skin graft (allograft) (autograft) (principal); E11.622 Type 2 diabetes mellitus with other skin ulcer; L97.321 Non-pressure chronic ulcer of left ankle limited to breakdown of skin; L84 Corns and callosities; B35.1 Tinea unguium; E66.9 Obesity, unspecified; E11.22 Type 2 diabetes mellitus with diabetic chronic kidney disease; I12.9 Hypertensive chronic kidney disease with stage 1 through stage 4 chronic kidney disease, or unspecified chronic kidney disease; N18.4 Chronic kidney disease, stage 4 (severe); E11.69 Type 2 diabetes mellitus with other specified complication; M86.68 Other chronic osteomyelitis, other site; E11.36 Type 2 diabetes mellitus with diabetic cataract; E11.42 Type 2 diabetes mellitus with diabetic polyneuropathy; E11.51 Type 2 diabetes mellitus with diabetic peripheral angiopathy without gangrene; I87.2 Venous insufficiency (chronic) (peripheral); E11.319 Type 2 diabetes mellitus with unspecified diabetic retinopathy without macular edema; Z68.1 Body mass index [BMI] 19.9 or less, adult; Z79.4 Long term (current) use of insulin; Y83.2 Surgical operation with anastomosis, bypass or graft as the cause of abnormal reaction of the patient, or of later complication, without mention of misadventure at the time of the procedure
CPT/HCPCS: 97597

== ENCOUNTER → 2017-07-01 | Outpatient (CLI) | payer MEDICARE, OTHER ==
[~2017-07-01] MED LIST changes: +ACETIC ACID 0.25% 1000 ML IRRIGATION SOLUTION IRRIG ONE; +GENTAMICIN SULFATE 0.1% 15 GM OINTMENT TP ONE; -LIDOCAINE HCL 2% 5 ML JELLY TP ONE; +LIDOCAINE HCL 4% 50 ML SOLUTION TP ONE
[2017-07-01 15:56] VITALS: BP 149/75
== END | disposition home or self-care (01) ==
LOC: HBOWC 13:10
PROVIDERS: ATTEND Nurse Practitioner Adult Health
DX: T86.828 Other complications of skin graft (allograft) (autograft) (principal); E11.622 Type 2 diabetes mellitus with other skin ulcer; L97.321 Non-pressure chronic ulcer of left ankle limited to breakdown of skin; E66.9 Obesity, unspecified; E11.22 Type 2 diabetes mellitus with diabetic chronic kidney disease; I12.9 Hypertensive chronic kidney disease with stage 1 through stage 4 chronic kidney disease, or unspecified chronic kidney disease; N18.4 Chronic kidney disease, stage 4 (severe); B35.1 Tinea unguium; E11.42 Type 2 diabetes mellitus with diabetic polyneuropathy; E11.36 Type 2 diabetes mellitus with diabetic cataract; E11.51 Type 2 diabetes mellitus with diabetic peripheral angiopathy without gangrene; M72.6 Necrotizing fasciitis; E11.69 Type 2 diabetes mellitus with other specified complication; M86.8X8 Other osteomyelitis, other site; E11.65 Type 2 diabetes mellitus with hyperglycemia; I10 Essential (primary) hypertension; Z68.1 Body mass index [BMI] 19.9 or less, adult; Z79.4 Long term (current) use of insulin; Y83.2 Surgical operation with anastomosis, bypass or graft as the cause of abnormal reaction of the patient, or of later complication, without mention of misadventure at the time of the procedure
CPT/HCPCS: 11042; 87070; 87205

== ENCOUNTER → 2017-07-08 | Outpatient (CLI) | payer MEDICARE, OTHER ==
[~2017-07-08] MED LIST changes: -ACETIC ACID 0.25% 1000 ML IRRIGATION SOLUTION IRRIG ONE; -GENTAMICIN SULFATE 0.1% 15 GM OINTMENT TP ONE; +LIDOCAINE HCL 2% 5 ML JELLY ONE; -LIDOCAINE HCL 4% 50 ML SOLUTION TP ONE
[2017-07-08 10:25] VITALS: BP 146/63
== END | disposition home or self-care (01) ==
LOC: HBOWC 09:16
PROVIDERS: ATTEND Nurse Practitioner Adult Health
DX: E11.622 Type 2 diabetes mellitus with other skin ulcer (principal); L97.321 Non-pressure chronic ulcer of left ankle limited to breakdown of skin; E11.42 Type 2 diabetes mellitus with diabetic polyneuropathy; E11.65 Type 2 diabetes mellitus with hyperglycemia; E11.51 Type 2 diabetes mellitus with diabetic peripheral angiopathy without gangrene; E66.9 Obesity, unspecified; E11.22 Type 2 diabetes mellitus with diabetic chronic kidney disease; I12.9 Hypertensive chronic kidney disease with stage 1 through stage 4 chronic kidney disease, or unspecified chronic kidney disease; N18.4 Chronic kidney disease, stage 4 (severe); M72.6 Necrotizing fasciitis; E11.69 Type 2 diabetes mellitus with other specified complication; M86.8X8 Other osteomyelitis, other site; L84 Corns and callosities; Z79.4 Long term (current) use of insulin; Z68.1 Body mass index [BMI] 19.9 or less, adult
CPT/HCPCS: 97597

== ENCOUNTER → 2018-04-08 | Outpatient (CLI) | payer MEDICARE, OTHER ==
[~2018-04-08] MED LIST changes: -AMMO225L14 TP; -CARV6 PO; -FINA5TAB41 PO; -FURO40 PO; -LIDOCAINE HCL 2% 5 ML JELLY ONE; -METF500T4 PO; -METO100XL PO; -NORT25 PO
[2018-04-08 10:55] LABS: BASOPHILS % (AUTO) 0.7 % (0.0-2.0); EOSINOPHILS % (AUTO) 3.5 % (1.0-6.0); HEMATOCRIT 38.4 % (41-53); HEMOGLOBIN 13.1 g/dL (13.5-17.5); LYMPHOCYTES # (AUTO) 2.6 K/uL (1.0-4.8); LYMPHOCYTES % (AUTO) 19.5 % (22.0-44.0); MEAN CORPUSCULAR HEMOGLOBIN 29.6 pg (26.0-34.0); MEAN CORPUSCULAR HGB CONC 34.1 G/dL (31.0-37.0); MEAN CORPUSCULAR VOLUME 87 fL (80-100); MONOCYTES # (AUTO) 1.3 K/uL (0.1-1.0); NEUTROPHILS # (AUTO) 8.8 K/uL (1.8-7.7); NEUTROPHILS % (AUTO) 66.3 % (40.0-70.0); PLATELET COUNT (AUTO) 322 K/uL (150-450); RED BLOOD CELL COUNT(AUTO) 4.42 MIL/uL (4.50-5.90); RED CELL DISTRIBUTION WIDTH 14.7 % (11.5-14.5)
[2018-04-08 11:04] LABS: HEMOGLOBIN A1C 7.9 % (4.5-6.2)
[2018-04-08 11:13] LABS: ALBUMIN 3.8 g/dL (3.4-5.0); BILIRUBIN,TOTAL 0.4 mg/dL (0.1-1.0); CALCIUM, TOTAL 9.3 mg/dL (8.8-10.5); CHOL/HDL RATIO 3.3 (4.2-7.3); CREATININE 5.8 mg/dL (0.60-1.30); FREE T4 (FREE THYROXINE) 0.92 ng/dL (0.76-1.46); MAGNESIUM 2.2 mg/dL (1.80-2.40); POTASSIUM 5.5 mmol/L (3.5-5.1); THYROID STIMULATING HORMONE 3.99 uIU/mL (0.36-3.74); TOTAL PROTEIN, SERUM 9.6 g/dL (6.4-8.2)
== END | disposition home or self-care (01) ==
LOC: LABPV 09:12
PROVIDERS: ATTEND Internal Medicine Cardiovascular Disease
DX: I11.0 Hypertensive heart disease with heart failure (principal); I50.9 Heart failure, unspecified; E11.8 Type 2 diabetes mellitus with unspecified complications; E55.9 Vitamin D deficiency, unspecified; D56.5 Hemoglobin E-beta thalassemia
CPT/HCPCS: 82306; 83036; 83735; 84439; 84443

== ENCOUNTER → 2018-12-20 | Outpatient (CLI) | payer MEDICARE, OTHER ==
[2018-12-20 12:14] LABS: BASOPHILS % (AUTO) 0.5 % (0.0-2.0); EOSINOPHILS % (AUTO) 3.3 % (1.0-6.0); HEMATOCRIT 34.4 % (41-53); HEMOGLOBIN 11.4 g/dL (13.5-17.5); LYMPHOCYTES # (AUTO) 1.9 K/uL (1.0-4.8); LYMPHOCYTES % (AUTO) 17.2 % (22.0-44.0); MEAN CORPUSCULAR HGB CONC 33.1 G/dL (31.0-37.0); MEAN CORPUSCULAR VOLUME 88 fL (80-100); MONOCYTES # (AUTO) 1.3 K/uL (0.1-1.0); MONOCYTES % (AUTO) 11.5 % (2.0-9.0); NEUTROPHILS # (AUTO) 7.6 K/uL (1.8-7.7); NEUTROPHILS % (AUTO) 67.5 % (40.0-70.0); PLATELET COUNT (AUTO) 317 K/uL (150-450); RED BLOOD CELL COUNT(AUTO) 3.93 MIL/uL (4.50-5.90); RED CELL DISTRIBUTION WIDTH 14.7 % (11.5-14.5)
[2018-12-20 12:35] LABS: HEMOGLOBIN A1C 8.4 % (4.5-6.2)
[2018-12-20 12:59] LABS: ALBUMIN 3.2 g/dL (3.4-5.0); BILIRUBIN,TOTAL 0.6 mg/dL (0.1-1.0); CALCIUM, TOTAL 8.5 mg/dL (8.8-10.5); CHOL/HDL RATIO 3.2 (4.2-7.3); CREATININE 4.89 mg/dL (0.60-1.30); FREE T4 (FREE THYROXINE) 1.23 ng/dL (0.76-1.46); POTASSIUM 3.9 mmol/L (3.5-5.1); THYROID STIMULATING HORMONE 3.95 uIU/mL (0.36-3.74); TOTAL PROTEIN, SERUM 8.3 g/dL (6.4-8.2)
== END | disposition home or self-care (01) ==
LOC: LABPV 11:30
PROVIDERS: ATTEND Internal Medicine Cardiovascular Disease
DX: I13.0 Hypertensive heart and chronic kidney disease with heart failure and stage 1 through stage 4 chronic kidney disease, or unspecified chronic kidney disease (principal); I50.9 Heart failure, unspecified; N18.3 Chronic kidney disease, stage 3 (moderate); E11.22 Type 2 diabetes mellitus with diabetic chronic kidney disease; E55.9 Vitamin D deficiency, unspecified; D56.5 Hemoglobin E-beta thalassemia
CPT/HCPCS: 82306; 83036; 83735; 84436; 84439; 84443

== ENCOUNTER → 2019-12-25 | Outpatient (CLI) | payer MEDICARE, OTHER ==
[~2019-12-25] MED LIST changes: +TAMS-13 PO; -TAMS0.4C32 PO
[2019-12-25 12:28] LABS: CHOL/HDL RATIO 2.8 (4.2-7.3)
== END | disposition home or self-care (01) ==
LOC: LABPV 09:20
PROVIDERS: ATTEND Internal Medicine Cardiovascular Disease
DX: I50.9 Heart failure, unspecified (principal); R73.09 Other abnormal glucose; I10 Essential (primary) hypertension; E55.9 Vitamin D deficiency, unspecified; D56.5 Hemoglobin E-beta thalassemia